=== PATIENT | female | born 1995 | race Caucasian/White ===

== ENCOUNTER 2016-07-16 05:09 | Emergency (ER) | payer OTHER ==
[~2016-07-16] VITALS: Ht 149.9 cm; Wt 90.3 kg
[~2016-07-16 05:09] MED LIST: FAMOTIDINE; FISHOIL; LEVOTHYROXINE0.05 MG; PRILOSEC 20 MG20 MG PO; ZOFRAN ODT4 MG PO
[2016-07-16] MEDS ORDERED: PEPCID40 MG PO (05:33)
[2016-07-16] MEDS ORDERED: PREDNISONE 10 M10 MG (05:34)
[2016-07-16 06:00] VITALS: BP 118/70
== END 2016-07-16 06:00 | disposition home or self-care (01) ==
LOC: ER 05:09
DX: L50.9 Urticaria, unspecified (principal); Z88.2 Allergy status to sulfonamides; Z88.8 Allergy status to other drugs, medicaments and biological substances